=== PATIENT | female | born 1935 | race Caucasian/White ===

== ENCOUNTER 2021-11-26 13:05 | Outpatient (CLI) | payer OTHER, MEDICARE | END 2021-11-26 21:04 | disposition home or self-care (01) | LOC: SRD 13:05 | PROVIDERS: ATTEND Internal Medicine | DX: Z01.818 Encounter for other preprocedural examination (principal); R06.02 Shortness of breath; M54.9 Dorsalgia, unspecified; I70.0 Atherosclerosis of aorta; M41.85 Other forms of scoliosis, thoracolumbar region; M48.50XA Collapsed vertebra, not elsewhere classified, site unspecified, initial encounter for fracture | CPT/HCPCS: 71046-TC ==